=== PATIENT | male | born 1960 | race Caucasian/White ===

== ENCOUNTER → 2023-10-20 06:22 | Outpatient (REF) | payer OTHER, SELFPAY ==
[2023-10-20 10:23] LABS: % Basophils 0.6 % (0-2); % Eosinophils 3.1 % (0-6); % Immature Granulocytes 0.3 % (0-0.5); % Lymphocytes 34.5 % (20.5-51.1); % Monocytes 8.8 % (1.7-9.3); % Neutrophils 52.7 % (42.2-75.2); Absolute Eosinophils 0.2 10^3/uL (0-0.7); Absolute Lymphocytes 2.2 10^3/uL (1.2-3.4); Absolute Monocytes 0.6 10^3/uL (0.1-0.6); Absolute Neutrophils 3.3 10^3/uL (1.4-6.5); Hematocrit 40.6 % (39.0-52.0); Hemoglobin 14.6 g/dL (13.0-18.0); Mean Corpuscular Hgb 32.7 pg (27.0-31.0); Nucleated Red Blood Cells % 0 % (-); Platelet Count 188 10^3/uL (130-400); Red Blood Cell Count 4.46 10^6/uL (4.70-6.10); Red Cell Dist. Width 12.6 % (11.5-14.5); White Blood Cell Count 6.4 10^3/uL (4.8-10.8)
[2023-10-20 10:42] LABS: ALT (SGPT) 41 U/L (0-50); AST (SGOT) 28 U/L (17-59); Albumin 4.6 g/dl (3.5-5.0); Alkaline Phosphatase 59 U/L (38-126); Blood Urea Nitrogen 18 mg/dl (9-20); Calcium 9.9 mg/dl (8.4-10.2); Carbon Dioxide 26 mmol/L (22-30); Chloride 103 mmol/L (98-107); Glucose 105 mg/dl (70-99); HDL Cholesterol 42 mg/dl; LDL Cholesterol, Calculated 63 mg/dl; Potassium 4.2 mmol/L (3.5-5.1); Sodium 134 mmol/L (135-145); Total Bilirubin 1.5 mg/dl (0.2-1.3); Total Cholesterol 119 mg/dl (50-199); Total Protein 7.1 g/dl (6.3-8.2); Triglyceride 73 mg/dl (10-149); Very Low Density Lipoprotein 14 mg/dl (0-30); eGFR > 60.00
[2023-10-20 11:14] LABS: PSA, Total - Screen 3.39 ng/ml (0.0-4.0); TSH Reflex To Free T4 1.43 uIU/ml (0.47-4.68)
== END ==
LOC: HWLAB 06:22
PROVIDERS: ATTENDING PHYSICIAN Nurse Practitioner
DX: Z00.00 Encounter for general adult medical examination without abnormal findings (principal); E78.5 Hyperlipidemia, unspecified; I10 Essential (primary) hypertension; Z12.5 Encounter for screening for malignant neoplasm of prostate
CPT/HCPCS: 36415; 80053; 80061; 84443; 85025; G0103

== ENCOUNTER → 2024-04-11 06:46 | Outpatient (REF) | payer OTHER, SELFPAY ==
[2024-04-11 09:48] LABS: Direct Bilirubin 0.2 mg/dl (0.0-0.4)
[2024-04-13 10:40] LABS: PSA Total 2.2 ng/mL (0.0-4.0)
== END ==
LOC: HWLAB 06:46
PROVIDERS: ATTENDING PHYSICIAN Nurse Practitioner
DX: R17 Unspecified jaundice (principal); R97.20 Elevated prostate specific antigen [PSA]
CPT/HCPCS: 36415; 82247; 82248; 84153; 84154

== ENCOUNTER → 2024-12-07 14:46 | Outpatient (REF) | payer OTHER, SELFPAY | LOC: DHSLP 14:46 | PROVIDERS: ATTENDING PHYSICIAN Internal Medicine Critical Care Medicine | DX: G47.33 Obstructive sleep apnea (adult) (pediatric) (principal) | CPT/HCPCS: 95800 ==

== ENCOUNTER → 2025-01-17 07:10 | Outpatient (REF) | payer OTHER, SELFPAY ==
[2025-01-17 09:47] LABS: % Basophils 0.4 % (0-2); % Eosinophils 2.1 % (0-6); % Immature Granulocytes 0.4 % (0-0.5); % Lymphocytes 33.6 % (20.5-51.1); % Monocytes 9.2 % (1.7-9.3); % Neutrophils 54.3 % (42.2-75.2); Absolute Eosinophils 0.1 10^3/uL (0-0.7); Absolute Lymphocytes 1.8 10^3/uL (1.2-3.4); Absolute Monocytes 0.5 10^3/uL (0.1-0.6); Absolute Neutrophils 2.8 10^3/uL (1.4-6.5); Hematocrit 40.7 % (39.0-52.0); Hemoglobin 14.4 g/dL (13.0-18.0); Mean Corp Hgb Conc. 35.4 g/dL (33.0-37.0); Mean Corpuscular Hgb 31.7 pg (27.0-31.0); Mean Corpuscular Volume 89.6 fL (80.0-94.0); Mean Platelet Volume 9.6 fL (7.4-10.4); Nucleated Red Blood Cells % 0 % (-); Platelet Count 179 10^3/uL (130-400); Red Blood Cell Count 4.54 10^6/uL (4.70-6.10); Red Cell Dist. Width 12.4 % (11.5-14.5); White Blood Cell Count 5.2 10^3/uL (4.8-10.8)
[2025-01-17 10:19] LABS: ALT (SGPT) 28 U/L (0-50); AST (SGOT) 19 U/L (17-59); Albumin 4.7 g/dl (3.5-5.0); Alkaline Phosphatase 51 U/L (38-126); Blood Urea Nitrogen 19 mg/dl (9-20); Calcium 9.8 mg/dl (8.4-10.2); Carbon Dioxide 24 mmol/L (22-30); Chloride 108 mmol/L (98-107); Glucose 106 mg/dl (70-99); HDL Cholesterol 40 mg/dl; LDL Cholesterol, Calculated 77 mg/dl; Potassium 4.1 mmol/L (3.5-5.1); Sodium 140 mmol/L (135-145); Total Bilirubin 1.1 mg/dl (0.2-1.3); Total Cholesterol 136 mg/dl (50-199); Total Protein 7.4 g/dl (6.3-8.2); Triglyceride 99 mg/dl (10-149); Very Low Density Lipoprotein 19 mg/dl (0-30); eGFR > 60.00
[2025-01-17 10:30] LABS: Glycohemoglobin (HgbA1c) 5.4 % (4.0-5.6)
[2025-01-17 10:45] LABS: TSH Reflex To Free T4 1.37 uIU/ml (0.47-4.68)
[2025-01-19 02:36] LABS: PSA Total 4.3 ng/mL (0.0-4.0)
== END ==
LOC: HWLAB 07:10
DX: Z00.01 Encounter for general adult medical examination with abnormal findings (principal); Z12.5 Encounter for screening for malignant neoplasm of prostate; R73.09 Other abnormal glucose
CPT/HCPCS: 36415; 80053; 80061; 83036; 84153; 84154; 84443; 85025

== ENCOUNTER → 2025-02-21 07:21 | Outpatient (REF) | payer OTHER, SELFPAY ==
[2025-02-21 10:52] LABS: PSA, Total - Diagnostic 3.32 ng/ml (0.0-4.0)
== END ==
LOC: HWLAB 07:21
PROVIDERS: ATTENDING PHYSICIAN Specialist
DX: R97.20 Elevated prostate specific antigen [PSA] (principal)
CPT/HCPCS: 36415; 84153